=== PATIENT | female | born 1995 | race Caucasian/White ===

== ENCOUNTER 2023-08-04 17:13 | Inpatient (IN) | payer BC ==
[2023-08-04] VITALS (22 sets, daily range): BP systolic 102–139; BP diastolic 55–83; PULSE 60–82; TEMP 97–98.1
[~2023-08-04] VITALS: Ht 165.1 cm; Wt 92.3 kg
--- NOTE | 2023-08-04 17:20 | NUR ---
PT AMBULATORY TO LR4 WITH SIGNIFICANT OTHER AND MOTHER. PT CHANGED INTO CLEAN GOWN. FHR MONITOR/TOCO APPLIED. PT DENIES VAGINAL BLEEDING, LEAKING OF FLUID, OR DECREASED MOVEMENT. PT CAME IN COMPLAINING OF CONTRACTIONS
[2023-08-04] MEDS ORDERED: LR 1,000 ML IV PRN (17:30)
[2023-08-04] MEDS ORDERED: LR 1,000 ML IV SCH (17:45)
[2023-08-04] MEDS ORDERED: LR & Oxytocin 500 ML IV SCH (17:45)
[2023-08-04 18:04] LABS: BASO % 0.2 % (0.0-2.0); EOS # 0.1 K/mm3 (0.0-0.7); EOS % 0.5 % (0.0-4.0); GRAN # 13.4 K/mm3 (1.4-6.5); GRAN % 81.9 % (42.2-75.2); HEMATOCRIT 35.3 % (37.0-47.0); HEMOGLOBIN 11.9 g/dl (12.5-16.0); LYMPH # 1.4 K/mm3 (1.2-3.4); LYMPH % 8.8 % (20.0-51.0); MEAN CELL VOLUME 85 fl (80.0-100.0); MEAN CORPUSCULAR HEMOGLOBIN 29 pg (27-31); MEAN CORPUSCULAR HGB CONC 34 g/dl (33.0-37.0); MONO # 1.3 K/mm3 (0.1-0.6); PLATELET COUNT 154 K/mm3 (130-400); RED BLOOD COUNT 4.17 M/mm3 (4.10-5.30); REDCELL DISTRIBUTION WIDTH-CV 14.3 % (11.5-14.5)
[2023-08-04] MEDS ORDERED: PRENATAL TABLET PO (18:06)
[2023-08-04] MEDS ORDERED: ADDERALL5 MG PO (18:06)
[2023-08-04] MEDS ORDERED: ROPivacaine PF 0.2% 200 ML IV ONE (18:59)
--- NOTE | 2023-08-04 19:00 | NUR ---
1847: PT SITTING ON SIDE OF BED AT THIS TIME FOR EPIDURAL PLACEMENT. ANESTHESIA AT THE BEDSIDE. 1858: PT REPOSITIONED BACK INTO BED, PLACED SEMI-FOWLERS, TILTED TO THE LEFT TO ALLOW EPIDURAL TO SET UP. PT REPORTS BEING COMFORTABLE AT THIS TIME.
--- NOTE | 2023-08-04 19:30 | NUR ---
Assumed care of patient. Rests in bed, alert, family at bedside. Denies any pain or discomfort at this time. States epidurals are great.
--- NOTE | 2023-08-04 20:30 | NUR ---
Rests in bed, alert. Visits with family members. Denies any pain or discomfort.
--- NOTE | 2023-08-04 21:13 | NUR ---
Rests in bed, alert. Pads changed and patient repositioned with peanut ball.
[2023-08-04] MEDS ORDERED: ePHEDrine 50 MG/10 ML VIAL IV PRN (21:30)
[2023-08-04] MEDS ORDERED: diphenhydrAMINE 25 MG CAP PO PRN (21:30)
[2023-08-04] MEDS ORDERED: Naloxone 0.4 MG/ML VIAL IV PRN (21:30)
[2023-08-04] MEDS ORDERED: diphenhydrAMINE 50 MG/ML 1 ML VIAL IV PRN (21:30)
[2023-08-04] MEDS ORDERED: Ondansetron 4 MG/2 ML VIAL IV PRN (21:30)
--- NOTE | 2023-08-04 22:30 | NUR ---
States having to throw up. Container given. Moderate amount of emisis noted. Cleaned up, and cool wash cloth given. 2240 Zofran 4 mg iv given as ordered.
--- NOTE | 2023-08-04 23:45 | NUR ---
Rests in bed, alert. heart tones down in the 106 for twenty seconds. Repositioned to right side with peanut ball.
[2023-08-05] VITALS (22 sets, daily range): BP systolic 107–149; BP diastolic 55–110; PULSE 66–107; TEMP 98.2–99.4
--- NOTE | 2023-08-05 01:00 | NUR ---
Rests in bed, alert. Waite catheter out, a few practice pushes. 0108 Starts pushing with contractions. Tolerates well.
--- NOTE | 2023-08-05 01:15 | NUR ---
Continues to push with contractions. Does well. Blood pressure cuff did not take while pushing.
--- NOTE | 2023-08-05 01:30 | NUR ---
Continues to push with contractions. Does well.
--- NOTE | 2023-08-05 02:00 | NUR ---
Continues to push with contractions. States feeling tired. Rests through some contractions.
--- NOTE | 2023-08-05 02:35 | NUR ---
Dr. Rock here. Checks patient. Patient starts to push with doctor Shweta. 0251 Spontaneous delivery of baby boy by Dr. Rock. Spontaneous delivery of placenta by Dr. Rock. Pitocin started at 333ccs an hour as ordered.
--- NOTE | 2023-08-05 03:00 | NUR ---
Patient rests in bed, alert. Repair work done by Dr. Rock. Baby to warmer by nursery nurse.
--- NOTE | 2023-08-05 03:15 | NUR ---
Rests in bed, alert. 0325 Report given to Mendy Lewis
[2023-08-05] MEDS ORDERED: Measles/Mumps/Rubella Virus Vaccine Live w Diluent 0.5 ML VIAL SQ SCH (03:30)
[2023-08-05] MEDS ORDERED: Witch Hazel 50% Pads Bulk TUB TP PRN (03:30)
[2023-08-05] MEDS ORDERED: Ibuprofen 800 MG TAB PO SCH (03:30)
[2023-08-05] MEDS ORDERED: Phenylephrine/Mineral Oil/Petrolatum 57 GM TUBE RC PRN (03:30)
[2023-08-05] MEDS ORDERED: Loratadine 10 MG TAB PO PRN (03:30)
[2023-08-05] MEDS ORDERED: Naloxone 0.4 MG/ML VIAL IV PRN (03:30)
[2023-08-05] MEDS ORDERED: Magnes Hydrox (MOM) 80 MG/ML 30 ML CUP PO PRN (03:30)
[2023-08-05] MEDS ORDERED: Mag/Al Hydrox/Simeth Susp 30 ML CUP PO PRN (03:30)
[2023-08-05] MEDS ORDERED: Acetaminophen 500 MG TAB PO SCH (03:30)
[2023-08-05] MEDS ORDERED: Sennosides/Docusate 8.6-50 MG TAB PO SCH (08:00)
--- NOTE | 2023-08-05 09:30 | NUR ---
Initial visit attempt; Patient out of room, Public Health Technologist left card offering congratulations and God's blessings along with the availability of [facility] at our hospital.
--- NOTE | 2023-08-05 09:37 | NUR ---
RN TO RN REPORT AT THIS TIME, CARE OF PT AND ASSUMED BY MAJO MARVIN.
[2023-08-05] MEDS ORDERED: traZODone 50 MG TAB PO PRN (21:00)
[2023-08-06 08:00] VITALS: BP 119/86; PULSE 80; TEMP 97.5
--- NOTE | 2023-08-06 08:00 | NUR ---
Rests in bed, alert. 0810 Ibuprofen 800 mg, tylenol 1000 mg given as ordered.
[2023-08-06] MEDS ORDERED: IBU800 M1 PO (12:01)
[2023-08-06 16:15] VITALS: BP 116/59; PULSE 86; TEMP 98.3
--- NOTE | 2023-08-06 16:15 | NUR ---
Rests in bed, alert. Visits with friends. Ibuprofen 800 mg given as ordered. Denies any other need at this time.
[2023-08-06 20:20] VITALS: BP 104/46; PULSE 72; TEMP 98.7
--- NOTE | 2023-08-07 08:00 | NUR ---
Rests in bed, alert. Denies any pain or discomfort at this time.
[2023-08-07 09:30] VITALS: BP 127/74; PULSE 89; TEMP 98.1
--- NOTE | 2023-08-07 10:30 | NUR ---
Rests in bed, alert. Tylenol 1000 mg given as ordered.
--- NOTE | 2023-08-07 10:35 | NUR ---
Baby to nursery by Dr. Pena for circumsision. 1055 Out to room with parents.
== END 2023-08-07 12:30 | disposition home or self-care (01) | DRG 807 ==
LOC: LDRO 17:13 → LDR 17:41 → OB 08-05 06:55
PROVIDERS: Student in an Organized Health Care Education/Training Program; ADMIT Obstetrics & Gynecology
PROC: 10E0XZZ Delivery of Products of Conception, External Approach (ICD-10-PCS; principal; 2023-08-05)
PROC: 0HQ9XZZ Repair Perineum Skin, External Approach (ICD-10-PCS; 2023-08-05)
DX: O36.5930 Maternal care for other known or suspected poor fetal growth, third trimester, not applicable or unspecified (principal); Z37.0 Single live birth; Z3A.39 39 weeks gestation of pregnancy; O99.344 Other mental disorders complicating childbirth; F90.9 Attention-deficit hyperactivity disorder, unspecified type; O76 Abnormality in fetal heart rate and rhythm complicating labor and delivery; O99.892 Other specified diseases and conditions complicating childbirth; O77.0 Labor and delivery complicated by meconium in amniotic fluid; O26.893 Other specified pregnancy related conditions, third trimester; O70.1 Second degree perineal laceration during delivery; Q76.0 Spina bifida occulta; Z67.41 Type O blood, Rh negative
CPT/HCPCS: J2405; J2590; J2795; J7120